=== PATIENT | male | born 1955 ===

== ENCOUNTER 2018-10-07 09:02 | Emergency (ER) | payer BC ==
[2018-10-07 09:13] VITALS: BP 149/86
--- NOTE | 2018-10-07 09:47 | UC ---
Respiratory Complaint HPI - HPI Summary HPI Summary: 63 yo male presents with productive cough, chest congestion, sinus congestion, and post nasal drip for the last 5-6 days. He has been taking OTC theraflu, which has helped a little with his cough. His symptoms seemed to be improving, but over the last day or two has had increased cough and feels wheezing. Denies fever, chills, sore throat, rash, n/v. - History of Current Complaint Chief Complaint: UCRespiratory Stated Complaint: CONGESTED Time Seen by Provider: 10/07/18 09:46 Hx Obtained From: Patient Onset/Duration: Gradual Onset Severity Initially: Mild Severity Currently: Moderate Pain Intensity: 5 Pain Scale Used: 0-10 Numeric Character: Cough: Productive - Allergies/Home Medications Allergies/Adverse Reactions: Allergies Allergy/AdvReac Type Severity Reaction Status Date / Time No Known Allergies Allergy Verified 10/07/18 09:14 Home Medications: Home Medications Aspirin 81 mg PO DAILY 10/07/18 [History Confirmed 10/07/18] Diphenhydra/Phenyleph/Acetamin [Theraflu Expressmax Night Cplt] 1 tab PO ONCE PRN 10/07/18 [History Confirmed 10/07/18] Glucosamine Sulfate Dipot Chlr [Gnp Glucosamine Maximum S] 1,000 mg PO DAILY 11/20 [History Confirmed 10/07/18] Ibuprofen 400 mg PO ONCE PRN 10/07/18 [History Confirmed 10/07/18] Multivitamin [Multivitamins] 1 cap PO DAILY 10/07/18 [History Confirmed 10/07/18 ] Pravastatin (NF) [Pravachol (NF)] 40 mg PO 1700 10/07/18 [History Confirmed 11/20] Ubidecarenone/Vit E/Vit E Mix [Co-Enzyme Q10 100 mg Softgel] 1 tab PO DAILY 11/20 [History Confirmed 10/07/18] PMH/Surg Hx/FS Hx/Imm Hx Endocrine History: Dyslipidemia - Surgical History Surgical History: Yes Surgery Procedure, Year, and Place: ta,lipotrip ,melanoma removed,right arm biopsy - Family History Known Family History: Positive: None - Social History Occupation: Employed Full-time Lives: With Family Alcohol Use: Occasionally Substance Use Type: None Smoking Status (MU): Never Smoked Tobacco Review of Systems All Other Systems Reviewed And Are Negative: Yes Constitutional: Positive: Fatigue Skin: Positive: Negative Eyes: Positive: Negative ENT: Positive: Sinus Congestion Respiratory: Positive: Cough Cardiovascular: Positive: Negative Gastrointestinal: Positive: Negative Neurovascular: Positive: Negative Psychological: Positive: Negative Physical Exam - Summary Physical Exam Summary: GENERAL: NAD. WDWN. No pain distress. SKIN: No rashes, sores, lesions, or open wounds. HEENT: Head: AT/NC Eyes: Conjunctiva clear without inflammation or discharge. Ears: Hearing grossly normal. TMs intact, no bulging, erythema, or edema. Nose: Nasal mucosa pink and moist. NTTP maxillary and frontal sinus. Throat: Posterior oropharynx without exudates, erythema, or tonsillar enlargement. Uvula midline. NECK: Supple. Nontender. No lymphadenopathy. CHEST: Mild wheezing throughout. No r/r. No accessory muscle use. Breathing comfortably and in no distress. CV: RRR. Without m/r/g. Pulses intact. Cap refill <2seconds NEURO: Alert. PSYCH: Age appropriate behavior. Triage Information Reviewed: Yes Vital Signs: Initial Vital Signs Temp 98.9 F 10/07/18 09:07 Pulse 100 10/07/18 09:07 Resp 20 10/07/18 09:07 BP 149/86 10/07/18 09:07 Pulse Ox 98 10/07/18 09:07 Laboratory Tests 10/07/18 10:08 Influenza A (Rapid) Negative Influenza B (Rapid) Negative Vital Signs Reviewed: Yes Respiratory Course/Dx - Course Course Of Treatment: CXR: IMPRESSION: No active cardiopulmonary disease is noted. Duoneb: Lung sounds improved with decreased wheezing. Pt feels able to get a better deep breath. POC flu: negative Suspect bronchitis. Rx for zpak, albuterol, and prednisone. - Differential Dx/Diagnosis Provider Diagnosis: Bronchitis Discharge - Sign-Out/Discharge Documenting (check all that apply): Patient Departure All imaging exams completed and their final reports reviewed: Yes - Discharge Plan Condition: Stable Disposition: HOME Prescriptions: Albuterol HFA INHALER* [Ventolin HFA Inhaler*] 1 puff INH Q6H PRN #1 mdi PRN Reason: Sob/Wheezing Azithromycin TAB* [Zithromax TAB (Z-DENY) 250 mg #6 tabs] 2 tab PO .TODAY, THEN 1 DAILY #1 deny GuaiFENesin DM* [Robitussin DM*] 5 ml PO Q6H PRN #120 ml PRN Reason: Cough predniSONE TAB* [Deltasone 20 MG TAB*] 40 mg PO DAILY #10 tab Patient Education Materials: Acute Bronchitis (ED) Forms: *Work Release Referrals: No Primary Care Phys,NOPCP [Primary Care Provider] - Additional Instructions: If you develop a fever, shortness of breath, chest pain, new or worsening symptoms - please call your PCP or go to the ED. Your blood pressure was high at todays visit. Please see your primary provider within 4 weeks for recheck and re-evaluation. - Billing Disposition and Condition Condition: STABLE Disposition: Home
[2018-10-07] MEDS ORDERED: Albuterol/Ipratropium NEB.SOL* Albuterol 2.5 MG/Ipratropium 0.5 MG 3 ML INH ONE (09:59)
[2018-10-07 10:20] LABS: Influenza A Molecular NEGATIVE (Negative); Influenza B Molecular NEGATIVE (Negative)
== END 2018-10-07 11:02 | disposition home or self-care (01) ==
LOC: UCEAST 09:02
DX: J40 Bronchitis, not specified as acute or chronic (principal); E78.5 Hyperlipidemia, unspecified; R09.81 Nasal congestion; R09.82 Postnasal drip; Z79.82 Long term (current) use of aspirin; Z79.899 Other long term (current) drug therapy
CPT/HCPCS: 71046; 99212; A9270-GY; G0463